=== PATIENT | female | born 1995 | race Caucasian/White ===

== ENCOUNTER → 2018-06-20 | Outpatient (CLI) | payer OTHER | END | disposition home or self-care (01) | LOC: PLD 13:18 → LAB SHORT 13:18 | DX: N87.9 Dysplasia of cervix uteri, unspecified (principal) | CPT/HCPCS: 88305 ==

== ENCOUNTER → 2018-12-29 | Outpatient (CLI) | payer OTHER ==
[2019-01-01 15:07] LABS: HPV 16 Negative (Negative); HPV 18 Negative (Negative); HPV OTHER HR TYPES Positive (Negative)
== END | disposition home or self-care (01) ==
LOC: LAB 09:22 → LAB SHORT 09:22
PROVIDERS: Obstetrics & Gynecology
DX: N87.0 Mild cervical dysplasia (principal)
CPT/HCPCS: 87624; 87625; 88142

== ENCOUNTER → 2018-12-29 | Outpatient (CLI) | payer OTHER | END | disposition home or self-care (01) | LOC: PLD 13:32 → LAB SHORT 13:32 | DX: N72 Inflammatory disease of cervix uteri (principal) | CPT/HCPCS: 88305 ==

== ENCOUNTER 2019-10-06 13:59 | Emergency (ER) | payer OTHER ==
[~2019-10-06] VITALS: Ht 154.9 cm; Wt 61.2 kg
[~2019-10-06 13:59] MED LIST: Silvadene20 GM TOP
[2019-10-06] MEDS ORDERED: IBUP800 PO (14:36)
[2019-10-06] MEDS ORDERED: Veetids 500500 MG PO (14:36)
== END 2019-10-06 14:41 | disposition home or self-care (01) ==
LOC: ER 13:59
DX: J02.9 Acute pharyngitis, unspecified (principal); Q89.8 Other specified congenital malformations
CPT/HCPCS: 99282

== ENCOUNTER 2020-01-10 19:00 | Emergency (ER) | payer OTHER ==
[~2020-01-10] VITALS: Ht 154.9 cm; Wt 59.9 kg
[~2020-01-10 19:00] MED LIST changes: +IBUP800 PO; +Veetids 500500 MG PO
[2020-01-10] MEDS ORDERED: ACETAMINOPHEN500 MG PO (21:09)
== END 2020-01-10 21:22 | disposition home or self-care (01) ==
LOC: ER 19:00
DX: S39.012A Strain of muscle, fascia and tendon of lower back, initial encounter (principal); V89.2XXA Person injured in unspecified motor-vehicle accident, traffic, initial encounter
CPT/HCPCS: 99283; A9270

== ENCOUNTER → 2020-11-21 | Outpatient (CLI) | payer OTHER ==
[~2020-11-21] MED LIST changes: +ACETAMINOPHEN500 MG PO; +AMOX-CLAV 875-1 EAC4 PO; +CEFU250T47 PO; +ONDA4ODT MM
== END | disposition home or self-care (01) ==
LOC: LAB SHORT 11:24 → LAB EV 11:24
DX: M54.5 Low back pain (principal)
CPT/HCPCS: 87086

== ENCOUNTER 2020-11-22 20:01 | Emergency (ER) | payer OTHER ==
[~2020-11-22] VITALS: Ht 154.9 cm; Wt 59.0 kg
[~2020-11-22 20:01] MED LIST changes: -AMOX-CLAV 875-1 EAC4 PO; -CEFU250T47 PO; -ONDA4ODT MM
[2020-11-22 20:30] LABS: Source, Urine Clean Catch
[2020-11-22] MEDS ORDERED: AMOX-CLAV 875-1 EAC4 PO (20:30)
[2020-11-22 20:37] LABS: BASOPHILS ABSOLUTE AUTO 0.02 K/mm3 (0.00-0.23); BASOPHILS PERCENT AUTO 0 % (0-2); EOSINOPHILS ABSOLUTE AUTO 0.03 K/mm3 (0.00-0.68); EOSINOPHILS PERCENT AUTO 0 % (0-6); Hemoglobin 13.9 g/dL (11.5-16.0); IMMATURE GRAN ABSOLUTE AUTO 0.03 K/mm3 (0.00-0.10); IMMATURE GRAN PERCENT AUTO 0 % (0-1); LYMPHOCYTES ABSOLUTE AUTO 0.64 K/mm3 (0.84-5.20); LYMPHOCYTES PERCENT AUTO 6 % (21-46); MONOCYTES ABSOLUTE AUTO 0.81 K/mm3 (0.16-1.47); MONOCYTES PERCENT AUTO 8 % (4-13); Mean Corpuscular HGB 27.4 pg (26.0-34.0); Mean Corpuscular HGB Conc 32.3 g/dL (31.5-36.5); Mean Corpuscular Volume 85 fL (80-100); NEUTROPHILS ABSOLUTE AUTO 9.03 K/mm3 (1.96-9.15); NEUTROPHILS PERCENT AUTO 85 % (41-73); Platelet Count 211 K/mm3 (150-400); Red Blood Cell Count 5.07 M/mm3 (3.80-5.20); White Blood Cell Count 10.56 K/mm3 (4.00-11.30)
[2020-11-22 20:38] LABS: Appearance, Urine Hazy (Clear); Bilirubin, Urine Neg (Neg); Blood, Urine 5+ (Neg); Color, Urine Amber (P-Yellow); Glucose Qualitative, Urine Neg (Neg); Ketones, Urine 2+ (Neg); Leukocyte Esterase, Urine 3+ (Neg); Nitrite, Urine Neg (Neg); Protein, Urine 3+ (Neg); Urobilinogen, Urine 2+ (Normal)
[2020-11-22 20:48] LABS: Bacteria Mod /hpf; Red Blood Cells, Urine 50-100 /hpf (0-2); Squamous Epithelial Cells Few /hpf (Few)
[2020-11-22 20:57] LABS: Alanine Aminotransfer (ALT/SGP 19 U/L (12-78); Albumin, Blood 3.6 g/dL (3.4-5.0); Albumin/Globulin Ratio 0.9 (0.8-1.8); Alk Phos 60 U/L (50-136); Anion Gap 5 mmol/L (6-16); Aspartate Aminotrans (AST/SGOT 15 U/L (12-37); Bilirubin, Total 0.6 mg/dL (0.1-1.0); Blood Urea Nitrogen 6 mg/dL (8-24); Bun/Creatinine Ratio 9.6 (12.0-20.0); CO2, Blood 26 mmol/L (21-32); Calcium, Blood 8.7 mg/dL (8.5-10.1); Chloride, Blood 107 mmol/L (98-108); Creatinine, Blood 0.62 mg/dL (0.40-1.00); Globulin, Blood 4.1 g/dL (2.2-4.0); Glomerular Filtration Rate >60 (60-); Glucose, Blood 182 mg/dL (70-99); Potassium, Blood 3.5 mmol/L (3.5-5.5); Sodium, Blood 138 mmol/L (136-145); Total Protein, Blood 7.7 g/dL (6.4-8.2)
[2020-11-22] MEDS ORDERED: CEFU250T47 PO (21:20)
[2020-11-22] MEDS ORDERED: ONDA4ODT MM (21:20)
== END 2020-11-22 21:29 | disposition home or self-care (01) ==
LOC: ER 20:01
PROVIDERS: Emergency Medicine
DX: N39.0 Urinary tract infection, site not specified (principal)
CPT/HCPCS: 36415; 80053; 81001; 81025; 85025; 87086; 96374; 96375; 99283-25; A9270; J1885; J2405; J7120

== ENCOUNTER → 2022-05-22 | Outpatient (CLI) | payer OTHER ==
[~2022-05-22] MED LIST changes: +AMOX-CLAV 875-1 EAC4 PO; +Amoxicillin500 MG PO; +CEFU250T47 PO; +ONDA4ODT MM
== END | disposition home or self-care (01) ==
LOC: LAB SHORT 10:51 → LAB 10:51
DX: J06.9 Acute upper respiratory infection, unspecified (principal)
CPT/HCPCS: 87081

== ENCOUNTER 2022-05-23 12:10 | Emergency (ER) | payer OTHER ==
[~2022-05-23] VITALS: Ht 154.9 cm; Wt 65.8 kg
[~2022-05-23 12:10] MED LIST changes: -Amoxicillin500 MG PO
[2022-05-23] MEDS ORDERED: Amoxicillin500 MG PO (13:35)
== END 2022-05-23 13:53 | disposition home or self-care (01) ==
LOC: ER 12:10
DX: J02.9 Acute pharyngitis, unspecified (principal)
CPT/HCPCS: 99282; J1100

== ENCOUNTER → 2024-09-07 | Outpatient (CLI) | payer OTHER ==
[~2024-09-07] MED LIST changes: +ADDERALL PO; +Amoxicillin500 MG PO; +Norco 5-325 Ta1 EACH PO; +SERT50 PO
== END ==
LOC: LAB 17:50 → LAB SHORT 17:50
DX: N75.0 Cyst of Bartholin's gland (principal)
CPT/HCPCS: 87070; 87075; 87077; 87186; 87205

== ENCOUNTER → 2024-11-07 | Outpatient (CLI) | payer OTHER | LOC: LAB SHORT 14:16 → LAB 14:16 | DX: L03.211 Cellulitis of face (principal) | CPT/HCPCS: 87070; 87075; 87077; 87147; 87186; 87205 ==